=== PATIENT | male | born 1960 | race Caucasian/White ===

== ENCOUNTER → 2018-11-03 | Outpatient (REF) ==
[~2018-11-03] MED LIST: ASPIRIN81 MG PO; COZAAR50 MG PO; GLIPIZIDE5 MG PO; LANTUS100 MG/ML SC; LOSARTAN POTASS50 MG PO; PREVACID30 M3 PO; SIMVASTATIN40 MG PO; TAM75CAP PO
== END | disposition home or self-care (01) | DRG 74 ==
LOC: LAB 06:44
PROVIDERS: ATTEND Internal Medicine
DX: E11.40 Type 2 diabetes mellitus with diabetic neuropathy, unspecified (principal); E11.42 Type 2 diabetes mellitus with diabetic polyneuropathy; E78.2 Mixed hyperlipidemia; I10 Essential (primary) hypertension; N18.3 Chronic kidney disease, stage 3 (moderate)

== ENCOUNTER 2023-08-25 15:30 | Emergency (ER) | payer MEDICARE ==
[~2023-08-25] VITALS: Ht 185.4 cm; Wt 104.3 kg
[2023-08-25 19:14] LABS: BASO% 0.7 % (0-3); EOS% 3.4 % (0-8); HEMATOCRIT 44.7 % (39.0-50.0); HEMOGLOBIN 14.4 g/dl (14.0-18.0); IMMATURE GRANULOCYTES 0.1 % (0.0-5.0); LYMPH% 17.8 % (15-41); MEAN CORPUSCULAR HGB 29.6 pG CALC (26.0-32.0); MEAN CORPUSCULAR HGB CONC 32.2 g/dL CAL (32.0-36.0); MONO% 9.7 % (2-13); NEUT# 8.49 thou/uL (1.82-7.42); NEUT% 68.3 % (42-76); RED BLOOD COUNT 4.86 mill/uL (4.70-6.10)
[2023-08-25 19:25] LABS: ALBUMIN 4.2 g/dL (3.2-5.0); BILIRUBIN, TOTAL 0.5 mg/dL (0.2-1.3); CREATININE 1.8 mg/dL (0.7-1.3); POTASSIUM 4.8 mmol/l (3.5-5.1); TOTAL PROTEIN 7.2 g/dL (6.3-8.2)
[2023-08-25] MEDS ORDERED: TYLENOL # 31 TA1 PO (20:07)
[2023-08-25] MEDS ORDERED: BACTRIM DS1 TAB PO (20:07)
[2023-08-25] MEDS ORDERED: GABAPENTIN100 MG PO (20:07)
[2023-08-25 20:18] VITALS: BP 134/66
== END 2023-08-25 20:28 | disposition home or self-care (01) ==
LOC: ED 15:30
PROVIDERS: Family Medicine
DX: L03.116 Cellulitis of left lower limb (principal); E11.42 Type 2 diabetes mellitus with diabetic polyneuropathy; Z79.84 Long term (current) use of oral hypoglycemic drugs

== ENCOUNTER 2024-05-25 07:14 | Day surgery (SDC) | payer MEDICARE ==
[~2024-05-25 07:14] MED LIST changes: +ACETAMINOPHEN325 MG PO; +BACTRIM DS1 TAB PO; +GABAPENTIN100 MG PO; +JARDIANCE25 MG PO; +METOPROL TAR25 MG PO; +NORVASC PO; +NOVOLIN R100 UNIT/1 SC; +TRESIBA FL100 UNIT/M SC; +TYLENOL # 31 TA1 PO
[2024-05-25] MEDS ORDERED: SODIUM CHLORIDE 0.9% 1,000 ML IV ONE (07:22)
[2024-05-25] MEDS ORDERED: FAMOTIDINE 10MG/ML 2ML SDV IV ONE (07:22)
[2024-05-25 09:20] VITALS: BP 102/54
[2024-05-25] MEDS ORDERED: PROPOFOL 200 MG/20 ML VIAL IV ONE (10:27)
== END 2024-05-25 09:29 | disposition home or self-care (01) ==
LOC: ORM 07:14
PROVIDERS: ATTEND Internal Medicine Gastroenterology
PROC: 0DJD8ZZ Inspection of Lower Intestinal Tract, Via Natural or Artificial Opening Endoscopic (ICD-10-PCS; principal; 2024-05-25)
PROC: 0DB48ZX Excision of Esophagogastric Junction, Via Natural or Artificial Opening Endoscopic, Diagnostic (ICD-10-PCS; 2024-05-25)
PROC: 0DB78ZX Excision of Stomach, Pylorus, Via Natural or Artificial Opening Endoscopic, Diagnostic (ICD-10-PCS; 2024-05-25)
DX: K31.89 Other diseases of stomach and duodenum (principal); K31.7 Polyp of stomach and duodenum; K21.9 Gastro-esophageal reflux disease without esophagitis; K64.8 Other hemorrhoids; I10 Essential (primary) hypertension; E11.42 Type 2 diabetes mellitus with diabetic polyneuropathy; E11.29 Type 2 diabetes mellitus with other diabetic kidney complication; N28.9 Disorder of kidney and ureter, unspecified; Z79.4 Long term (current) use of insulin; Z87.891 Personal history of nicotine dependence; Z79.84 Long term (current) use of oral hypoglycemic drugs; Z87.11 Personal history of peptic ulcer disease